=== PATIENT | female | born 2000 | race Two or more races ===

== ENCOUNTER 2020-03-16 12:02 | Outpatient (REF) | payer OTHER, SELFPAY ==
[2020-03-16 12:40] LABS: COVID-19 Test Negative (Negative)
== END 2020-03-16 12:03 | disposition home or self-care (01) ==
LOC: HO.LAB 12:02
PROVIDERS: Visit Provider Internal Medicine
DX: Z20.828 Contact with and (suspected) exposure to other viral communicable diseases (principal)
CPT/HCPCS: 87635

== ENCOUNTER 2022-08-06 16:13 | Outpatient (REF) | payer OTHER, SELFPAY | END 2022-08-06 16:14 | disposition home or self-care (01) | LOC: HO.LAB 16:13 | PROVIDERS: Visit Provider Nurse Practitioner Acute Care | DX: J02.9 Acute pharyngitis, unspecified (principal) | CPT/HCPCS: 36415; 87070 ==

== ENCOUNTER 2023-08-18 13:02 | Observation (INO) | payer OTHER, SELFPAY ==
[2023-08-18] VITALS (8 sets, daily range): BP systolic 116–132; BP diastolic 65–93; PULSE 89–110; RESP 16–19; TEMP 36.6–36.7; O2SAT 97–99; BMI 26.5
--- NOTE | ~2023-08-18 | XR_ITS ---
EXAMINATION: XR CHEST CLINICAL INFORMATION: Reason for Exam dyspnea COMPARISON: None TECHNIQUE: 2 views of the chest FINDINGS: Lines and tubes: None. Clear lungs. No pleural effusion. No pneumothorax. Normal cardiomediastinal silhouette. XR/XR chest 2V IMPRESSION: * Clear lungs.
--- NOTE | 2023-08-18 13:08 | ED_ITS ---
HPI - General Adult General Chief complaint: Upper Respiratory Symptoms Stated complaint: Diff Breathing Time Seen by Provider: 08/18/23 13:13 Source: patient, family (mother) and RN notes reviewed Mode of arrival: ambulatory Limitations: no limitations History of Present Illness HPI narrative: 22-year-old female with pmhx significant for allergy induced asthma as a child presents to ED today for evaluation of shortness of breath x1 week. She endorses audible wheezing that was initially on inspiration, now on both inspiration and expiration. She states that her PCP prescribed her albuterol inhaler and nebuliz er that she has been using. She states her symptoms are temporarily relieved with her nebulizer however after about 4 hours she begins to wheeze. She last used her nebulizer this morning. She endorses history of allergy induced asthma as a child however has not had any exacerbations since then and is not on a daily steroid. Denies known sick contacts. Denies fever, chills, headache, dizziness, cough, hemoptysis, chest pain, palpitations, lower extremity pain/swelling. Related Data Home Medications Medication Instructions Recorded Confirmed albuterol sulfate 2.5 mg/3 mL 2.5 mg inhalation Q4H PRN wheezing 08/18/23 08/18/23 (0.083 %) solution for nebulization albuterol sulfate 90 mcg/actuation 2 puff inhalation Q4-6H PRN 08/18/23 08/18/23 aerosol inhaler wheezing fexofenadine 180 mg tablet 180 mg PO Q24H PRN Allergy Symptoms 08/18/23 08/18/23 Allergies Allergy/AdvReac Type Severity Reaction Status Date / Time SEASONAL ALLERGIES Allergy Unknown SNEEZING, Uncoded 02/18/20 19:04 RUNNY NOSE, ITCHY EYES Review of Systems Review of Systems: Constitutional: No fever, chills, fatigue, night sweats, weight changes ENT/Mouth: No ear pain, hearing loss, nasal congestion, sinus pain, rhinorrhea, sore throat Eyes: No eye pain, swelling, redness, vision changes, discharge Cardio: No chest pain, palpitations, LIPSCOMB, orthopnea, peripheral edema Pulm: No cough, sputum, dyspnea, hemoptysis, +sob, +wheezing GI: No nausea, vomiting, hematemesis, abdominal pain, diarrhea, constipation, hematochezia, melena : No irregular bleeding, dysuria, frequency, urgency, hesitancy, hematuria, flank pain, urinary flow changes, urinary incontinence or retention MSK: No back pain, neck pain, joint pain, myalgias Skin: No lesions, rashes Neuro: No weakness, numbness, paresthesias, LOC, dizziness, headache Psych: No anxiety/panic, depression, SI/HI, AH/VH All other systems reviewed and are negative. [facility] Past Medical History Attestation statement: The following information was validated with the patient. Source: old records reviewed and nursing notes reviewed Social History Social History Alcohol intake: current Alcohol intake frequency: holidays/special occasions only Patient Tobacco Use Status: Never used Tobacco Smoked in Last 30 Days: No Use of substances other than those prescribed or required for medical reasons: Yes Substance Use Type: Marijuana Substance Use Frequency: Daily Last Used Substance: Days (ago) Any prior treatment program specific to substance use: No Advance Directives: No Advance Directives Information Provided: No Nutrition Risks: No Nutritional Risk Patient : No Physical Exam ED Vital Signs: Vital Signs - 24 hr 08/18/23 13:07 08/18/23 13:47 08/18/23 14:42 Temperature Pulse Rate 89 110 H 107 H Respiratory Rate 16 18 18 Blood Pressure 116/93 H Pulse Oximetry 98 Oxygen Delivery Method Room Air 08/18/23 14:59 Temperature 97.9 F Pulse Rate 90 Respiratory Rate 19 Blood Pressure 126/72 Pulse Oximetry 98 Oxygen Delivery Method Room Air BMI result Body Mass Index 26.5 Vital signs stable Const General: cooperative, healthy appearing, comfortable and no acute distress Orientation/consciousness: patient oriented x3 Limitations: no limitations [facility] Head: Yes normal to inspection, Yes No palpable skull fracture present, Yes normocephalic and Yes atraumatic Eyes General: appearance normal, both eyes and all related structures Conjunctivae: conjunctivae normal Sclerae: sclerae normal Pupils: Equal, round and reactive pupils present Neck Neck: Yes normal visual inspection, Yes no lymphadenopathy and Yes no JVD Chest Chest palpation & inspection: normal inspection of the chest and normal palpation of entire chest wall Resp Other: + diffuse inspiratory and expiratory wheezes Effort & Inspection: normal respiratory effort, able to speak in complete sentences, audible wheezes, no cough, no respiratory distress, no tripod positioning and no use of accessory muscles Cardio Rate: regular rate Rhythm: regular rhythm Skin General skin exam: no rashes or lesions noted Neuro General: patient oriented x3 Cranial nerves: Yes Equal, round and reactive pupils present Course Course Course Narrative: This is a rapid medical exam: Additional HPI, ROS, PE not included below will be deferred to primary provider. Patient is a 22-year-old female with history of asthma presenting to the emergency department with complaint of shortness of breath. Has been using nebulizer at home with little improvement in symptoms. Denies fevers. Plan: CXR, viral swabs Reevaluation(s) Reevaluation #1: 1613-- patient continues to have diffuse expiratory wheezes on exam despite treatment with Decadron, 2 doses of albuterol, and IV magnesium sulfate. Patient has tested negative for COVID, flu, RSV. Chest x-ray is unremarkable. No signs of pneumonia or effusion. Given continued symptoms despite treatment, will present to hospitalist for admission. 1623-- presented patient to Dr. Goldman who has accepted for admission. Dr. Goldman to place admission orders. Medications Administered Discontinued Medications Generic Name Dose Route Start Last Admin Trade Name Freq PRN Reason Stop Dose Admin Albuterol Sulfate 2.5 mg 08/18/23 14:36 08/18/23 14:42 Albuterol Sulfate (0.083%) 2.5 Mg/3 Ml Vial.Neb INHALE 08/18/23 14:37 2.5 mg ONCE ONE Administration Albuterol Sulfate 2.5 mg/ 0 mg 08/18/23 13:39 08/18/23 13:44 Albuterol/Ipratropium 3 ml INHALE 08/18/23 13:40 5 dose ONCE ONE Administration Dexamethasone Sodium Phosphate 10 mg 08/18/23 13:17 08/18/23 13:35 Dexamethasone Sod Phosphate 10 Mg/Ml Vial IVPUSH 08/18/23 13:18 10 mg ONCE ONE Administration Magnesium Sulfate 2 gm in 50 mls @ 25 mls/hr 08/18/23 14:57 08/18/23 16:46 Magnesium Sulfate/H2o IV 08/18/23 16:56 Infused ONCE ONE Infusion Medical Decision Making Medical Decision Making MDM Narrative: 22-year-old female with pmhx significant for allergy induced asthma as a child presents to ED today for evaluation of shortness of breath x1 week. Patient is slightly hypertensive. Not tachycardic. Not hypoxic. She is nontoxic appearing and in no acute distress. Lungs with diffuse inspiratory and expiratory wheezes. No increased effort of breathing. No JVD or peripheral edema. No calf tenderness. Clinical concern for viral syndrome, asthma, pneumonia. Low suspicion for acute respiratory distress, airway compromise, PE, pleural effusion. Plan for viral serology, CXR, bronch protocol and steroids Differential Diagnosis Differential Diagnoses: The differential diagnosis associated with the presentation includes As above Consult Healthcare Provider Management of the patient was discussed with: Hospitalist (Dr. Goldman) Lab Data MDM Lab Attestation statement: I reviewed the patient's lab results. as above. Labs: Lab Results 08/18/23 Range/Units 13:35 Influenza Type A (PCR) NEGATIVE (Negative) Influenza Type B (PCR) NEGATIVE (Negative) RSV RNA Qual (PCR) NEGATIVE (Negative) SARS-CoV-2 RNA (RT-PCR) NEGATIVE (Negative) Independent Interpretation I performed an independent interpretation of an: Plain X-Ray Interpretation: I have personally reviewed chest xray and agree with radiologist's interpretation. Radiology Impression Discussion of test interpretation with radiology: I have reviewed the radiologist's reading. Radiologist Impression: EXAMINATION: XR CHEST CLINICAL INFORMATION: Reason for Exam dyspnea COMPARISON: None TECHNIQUE: 2 views of the chest FINDINGS: Lines and tubes: None. Clear lungs. No pleural effusion. No pneumothorax. Normal cardiomediastinal silhouette. XR/XR chest 2V IMPRESSION: * Clear lungs. Independent Historian Clinical information obtained from an independent historian. History obtained from or confirmed by: Parent (mom) Prescription Management I considered prescription management with: Other (steroid) Chronic Conditions Patient?s care impacted by: Other (allergy induced asthma) Social Determinants Patient?s care significantly limited by Social Determinants of Health including: Other Social Determinant of Health Critical Care Time Critical Care Time Critical Care Time: Yes Total Critical Care Time: 60 Attestation: Critical care time in the amount of 60 minutes has been provided to the patient in terms of direct patient care, frequent reevaluation during breathing treatments, review and interpretation of medical data and results, and management of potentially life-threatening conditions. This is all outside of any medical procedures. Discharge Plan Discharge Clinical Impression: Asthma exacerbation Patient Disposition: Still a Patient Interventions: Admission Worksheet (ED) Last Done: 08/18/23 18:27
[2023-08-18] MEDS: dexAMETHasone sod phosphate 10 MG/ML VIAL IVPUSH (13:35)
[2023-08-18] MEDS: Albuterol Sulfate 2.5 MG, Albuterol/Iprat 2.5/0.5MG 3 ML 3 ML INHALE (13:44)
[2023-08-18 14:30] LABS: Influenza A PCR NEGATIVE (Negative); Influenza B PCR NEGATIVE (Negative); Resp Syncy Virus RNA Qual PCR NEGATIVE (Negative); SARS COV2 PCR INHOUSE NEGATIVE (Negative)
[2023-08-18] MEDS: Albuterol Sulfate (0.083%) 2.5 MG/3 ML VIAL.NEB INHALE (14:42)
[2023-08-18] MEDS: Magnesium Sulfate/H2O 2 GM/50 ML PIGGYBACK IV (15:11)
--- NOTE | 2023-08-18 17:04 | P.HPHOSP_ITS ---
History of Present Illness Date of Service: 08/18/23 Chief Complaint: dyspnea, wheezing 22yo F with mild intermittent asthma that was worse as a child and usually triggered by exercise but also by URIs. No prior intubation or hospitalizations, and last course of steroids was many years ago. Last use of albuterol before the current exacerbation was over a year ago. She presents with 1 week of progressive dyspnea and wheezing. Initially, she had some cold symptoms with nasal congestion. No exposure to cigarette smoke or chemical fumes. She has been coughing a small amount of thin sputum. She contacted her PCP for an albuterol refill, but was told she needed labs. She was not hypoxic upon presention to the ED. CXR was negative for pneumonia. PCR testing for influenza and Covid-19 was negative. She was given 10 mg IV dexamethasone, 2g of magnesium sulfate, 1 Duoneb, and 1 albuterol neb. Due to o ngoing wheezing and dyspnea, admission was requested. Review of Systems Review of Systems: Yes all other systems are reviewed and are negative PMFSH Social History Advance Directives: No Advance Directives Information Provided: No Narrative: occasional THC use Meds Allergies Allergy/AdvReac Type Severity Reaction Status Date / Time SEASONAL ALLERGIES Allergy Unknown SNEEZING, Uncoded 02/18/20 19:04 RUNNY NOSE, ITCHY EYES Physical Exam Vital Signs and Narrative: Vital Signs: Last Vital Signs Temp 97.9 F 08/18/23 14:59 Pulse 90 08/18/23 14:59 Resp 19 08/18/23 14:59 BP 126/72 08/18/23 14:59 Pulse Ox 98 08/18/23 14:59 O2 Del Method Room Air 08/18/23 14:59 BMI result Body Mass Index 26.5 Gen: in no acute distress HEENT: sclera anicteric, moist mucus membranes Neck: supple Lungs: diffuse inspiratory and expiratory wheezing Heart: regular rate and rhythm, no murmurs Abd: soft, non-tender, non-distended Ext: no edema Skin: warm/well-perfused Neuro: alert and oriented x3, no focal findings Psych: appropriate affect Results Labs Labs: Laboratory Results - last 24 hr 08/18/23 13:35 Influenza Type A (PCR) NEGATIVE Influenza Type B (PCR) NEGATIVE RSV RNA Qual (PCR) NEGATIVE SARS-CoV-2 RNA (RT-PCR) NEGATIVE Imaging Radiologist's Impressions: Impressions Chest X-Ray 08/18/23 13:21 IMPRESSION: * Clear lungs. Assessment and Plan (1) Mild intermittent asthma: Status: Acute Plan 22yo F with mild intermittent asthma that had been quiescent for over a year presenting with asthma exacerbation likely triggered by URI. mild intermittent asthma - admit to med-surg on observation, give IV methylprednisolone, standing/prn albuterol, d/c with albuterol neb/inhaler VTE ppx - SCDs, early ambulation dispo - anticipate home in next 1-2d Quality Stroke Does the patient have a stroke diagnosis?: No VTE Prior VTE?: No VTE Risk Level:: Medical - moderate - high VTE Device Contraindication: N/A - Device Ordered VTE Drug Contraindication: Treatment Not Indicated
--- NOTE | 2023-08-18 17:53 | PHA.MEDREC ---
Pharmacy Consult ? Medication Reconciliation Pharmacy has completed the medication reconciliation. spoke with patient to confirm medications. She reports using the nebulizer solution very often due to difficulty breathing. She reports not taking control in over 2 weeks.
[2023-08-18] MEDS: Albuterol/Iprat 2.5/0.5MG 3 ML AMPUL.NEB INHALE (20:32)
[2023-08-18] MEDS: methylPREDNISolone Sod Succ 40 MG/ML VIAL IVPUSH (21:31)
[2023-08-18] MEDS: 0.9 % Sodium Chloride Flush 3 ML SYRINGE IVFLUSH (21:31)
[2023-08-19] VITALS (10 sets, daily range): BP systolic 102–131; BP diastolic 58–76; PULSE 77–125; RESP 16–21; TEMP 36.1–36.9; O2SAT 96–98
[2023-08-19] MEDS: Albuterol/Iprat 2.5/0.5MG 3 ML AMPUL.NEB INHALE ×4 (08:01→20:28)
[2023-08-19] MEDS: methylPREDNISolone Sod Succ 40 MG/ML VIAL IVPUSH (08:02)
[2023-08-19] MEDS: 0.9 % Sodium Chloride Flush 3 ML SYRINGE IVFLUSH ×3 (08:02→20:28)
[2023-08-19] MEDS: methylPREDNISolone Sod Succ 125 MG/2 ML VIAL 60 MG IVPUSH ×3 (08:53→20:27)
--- NOTE | 2023-08-19 09:37 | MHC.CM.PN ---
pt lives with parents ,independent will not need servies when dcd
--- NOTE | 2023-08-19 13:57 | HO.PM.IMPN ---
Subjective Subjective Date of Service: 08/19/23 Interval History: Minimal improvement overnight. Still with dense expiratory wheezes Review of Systems Denies chest pain Admits to shortness of breath with exertion Denies nausea vomiting diarrhea Denies fever chills Physical Exam Vital Signs: Vital Signs: Last Vital Signs Temp 97.5 F 08/19/23 07:57 Pulse 90 08/19/23 11:16 Resp 16 08/19/23 11:16 BP 124/67 08/19/23 07:57 Pulse Ox 97 08/19/23 07:57 O2 Del Method Room Air 08/19/23 07:57 BMI result Body Mass Index 26.5 Const: Other: Awake alert able to speak in full sentences Resp: Other: Diminished at bases with dense expiratory wheezes throughout Cardio: Other: No S4; positive S1-S2; no S3 murmurs rubs or gallops GI: Other: Soft nontender nondistended normoactive bowel sounds Extrem: Other: No edema bilaterally Objective Data Active Medications Acetaminophen (Acetaminophen 325 Mg Tablet) 650 mg PO Q6H PRN PRN Reason: Pain, Mild (Pain Scale 1-3) Albuterol Sulfate (Albuterol Sulfate (0.083%) 2.5 Mg/3 Ml Vial.Neb) 2.5 mg INHALE Q2H PRN PRN Reason: Shortness of Breath/Wheezing Albuterol/Ipratropium (Albuterol/Iprat 2.5/0.5mg 3 Ml Ampul.Neb) 3 ml INHALE RQ4H WHILE AWAKE [facility] Last Admin: 08/19/23 11:16 Dose: 3 ml Documented By: EH Loratadine (Loratadine 10 Mg Tablet) 10 mg PO Q24H PRN PRN Reason: Allergy Symptoms Methylprednisolone Sodium Succinate (Methylprednisolone Sod Succ 125 Mg/2 Ml Vial) 60 mg IVPUSH Q6H [facility] Last Admin: 08/19/23 08:53 Dose: 60 mg Documented By: ROLANDO Ondansetron HCl (Ondansetron Hcl 4 Mg/2 Ml Vial) 4 mg IVPUSH Q8H PRN PRN Reason: Nausea and Vomiting Sodium Chloride (0.9 % Sodium Chloride Flush 3 Ml Syringe) 3 ml IVFLUSH QSHIFT [facility] Last Admin: 08/19/23 08:02 Dose: 3 ml Documented By: ROLANDO Labs Labs: Laboratory Results - last 24 hr 08/18/23 13:35 Influenza Type A (PCR) NEGATIVE Influenza Type B (PCR) NEGATIVE RSV RNA Qual (PCR) NEGATIVE SARS-CoV-2 RNA (RT-PCR) NEGATIVE Assessment and Plan (1) Asthma exacerbation: Status: Acute (2) Mild intermittent asthma: Status: Acute Plan 22yo F with mild intermittent asthma that had been quiescent for over a year presenting with asthma exacerbation likely triggered by URI. 1.Mild intermittent asthma with exacerbation -minimal improvement overnight; tolerant of therapies -increase Solu-Medrol to 60 mg IV q.6 hours -DuoNebs Q 4 while awake VTE ppx - SCDs, early ambulation Requires ongoing hospitalization for IV steroids; high risk for outpatient failure Quality Stroke Does the patient have a stroke diagnosis?: No VTE Prior VTE?: No VTE Risk Level:: Medical - low VTE Device Contraindication: N/A - Device Ordered VTE Drug Contraindication: Treatment Not Indicated
[2023-08-20] MEDS: methylPREDNISolone Sod Succ 125 MG/2 ML VIAL 60 MG IVPUSH ×3 (03:05→12:51)
[2023-08-20] MEDS: 0.9 % Sodium Chloride Flush 3 ML SYRINGE IVFLUSH (07:42)
[2023-08-20 07:43] VITALS: BP 118/70; PULSE 88; RESP 16; TEMP 36.4; O2SAT 96
[2023-08-20] MEDS: Albuterol/Iprat 2.5/0.5MG 3 ML AMPUL.NEB INHALE ×2 (07:51→11:36)
[2023-08-20 07:52] VITALS: PULSE 88; RESP 16; O2SAT 96
--- NOTE | 2023-08-20 10:12 | MHC.CM.PN ---
pt dcd home no servies
--- NOTE | 2023-08-20 11:33 | PC.NURSE ---
Pt to be discharged today after afternoon dose of solumedrol scheduled for 1430. Phone order per MD Dr Pereyra, afternoon dose to be given early at 12:45. Pt is alert and oriented x 4, has no complaints of pain, respirations are even and unlabored, resting in bed at this time.
[2023-08-20 11:36] VITALS: PULSE 90; RESP 16; O2SAT 94
--- NOTE | 2023-08-20 12:08 | PM.DS ---
DS: Providers Provider Date of Service: 08/20/23 Date of admission: 08/18/23 17:00 Date of discharge: 08/20/23 Primary care physician: Jessica Ibarra MD DS: Diagnosis Discharge Diagnosis (1) Asthma exacerbation: Status: Acute (2) Mild intermittent asthma: Status: Acute DS: Summary Hospital Course Hospital Course: 22yo F with mild intermittent asthma that was worse as a child and usually triggered by exercise but also by URIs. No prior intubation or hospitalizations, and last course of steroids was many years ago. Last use of albuterol before the current exacerbation was over a year ago. She presents with 1 week of progressive dyspnea and wheezing. Initially, she had some cold symptoms with nasal congestion. No exposure to cigarette smoke or chemical fumes. She has been coughing a small amount of thin sputum. She contacted her PCP for an albuterol refill, but was told she needed labs. She was not hypoxic upon presention to the ED. CXR was negative for pneumonia. PCR testing for influenza and Covid-19 was negative. She was given 10 mg IV dexamethasone, 2g of magnesium sulfate, 1 Duoneb, and 1 albuterol neb. Due to ongoing wheezing and dyspnea, admission was requested. Hospital Course Patient admitted to general medical floor and continued with DuoNebs q.4 hours p.r.n. and IV steroids. Over the next 24-48 hours patient improved to the point where she is now medically acceptable for discharge home. She will resume all pre-hospital medications and complete a prednisone taper; 60 mg daily x3, 40 mg daily x3, and 20 mg daily x3. She should follow up with PCP next available Time Attestation Discharge Coordination Time (in mins): 35 Quality: Safe Use of Opioids Does Pt have an Active Cancer Diagnosis on the Problem List?: No Quality: Stroke Does the patient have a stroke diagnosis?: No Physical Exam Vital Signs: Vital Signs: Last Vital Signs Temp 97.6 F 08/20/23 07:43 Pulse 90 08/20/23 11:36 Resp 16 08/20/23 11:36 BP 118/70 08/20/23 07:43 Pulse Ox 96 08/20/23 07:43 O2 Del Method Room Air 08/20/23 07:43 BMI result Body Mass Index 26.5 Const: Other: Awake alert able to speak in full sentences Resp: Other: Diminished at bases with dense expiratory wheezes throughout Cardio: Other: No S4; positive S1-S2; no S3 murmurs rubs or gallops GI: Other: Soft nontender nondistended normoactive bowel sounds Extrem: Other: No edema bilaterally Discharge Plan Discharge Anticipated Discharge Date/Time: 08/20/23 12:05 Patient Disposition: Home, Self-Care Discharge Diagnosis: Mild intermittent asthma with exacerbation Referrals: Jessica Ibarra MD [Primary Care Provider] - 1 Week Discharge Medications: New guaifenesin [Mucinex] 600 mg Tablet Extended Release 12hr 600 mg PO BID Qty: 60 0RF prednisone 20 mg tablet See Rx Instructions .Route .COMPLEX Qty: 18 0RF Rx Instructions: 20 mg orally; 3 tabs daily for 3 days, 2 tabs daily for 3 days, 1 tab daily for 3 days Continued albuterol sulfate 2.5 mg /3 mL (0.083 %) solution for nebulization 2.5 mg inhalation Q4H PRN (Reason: wheezing) fexofenadine 180 mg Tablet 180 mg PO Q24H PRN (Reason: Allergy Symptoms) albuterol sulfate 90 mcg/actuation HFA aerosol inhaler 2 puff inhalation Q4-6H PRN (Reason: wheezing) Discharge Orders: Discharge Order (Routine); Ordered 08/20/23 Ordered By: Ravin Pereyra Diet: Advance to usual diet Activity on Discharge: As tolerated Stand Alone Forms: Patient Portal Discharge page, Work/School Release Care Plan Goals: Continue all medicines as taken prior to the hospital. Health Concerns: Utilize nebulizer 4 times a day as needed until breathing normalizes Plan of Treatment: Prednisone taper has been added to your regimen. Take as ordered. Follow-up with PCP next available Assessment: See discharge summary
[2023-08-20] MEDS: guaiFENesin LA 600 MG TAB.ER.12H PO (12:09)
== END 2023-08-20 13:11 | disposition home or self-care (01) ==
LOC: HO.ED 16:08 → HO.EDOVER 17:25 → HO.S3 18:27
PROVIDERS: Registered Nurse Emergency; Admitting Provider Family Medicine; Emergency Provider Emergency Medicine; PCP Student in an Organized Health Care Education/Training Program; Visit Provider Hospitalist
DX: J45.21 Mild intermittent asthma with (acute) exacerbation (principal); R06.02 Shortness of breath; Z11.52 Encounter for screening for COVID-19; Z20.828 Contact with and (suspected) exposure to other viral communicable diseases
CPT/HCPCS: 0241U; 71046; 94640; 96365; 96366; 96375; 96376; 99221; 99285; J1100; J2920; J2930; J3475

== ENCOUNTER → 2023-08-18 13:22 | Outpatient (BNV) | payer OTHER, SELFPAY | PROVIDERS: Emergency Provider Emergency Medicine; PCP Student in an Organized Health Care Education/Training Program; Visit Provider Family Medicine | DX: J45.21 Mild intermittent asthma with (acute) exacerbation (principal) | CPT/HCPCS: 99222; 99232; 99239 ==

== ENCOUNTER 2023-08-27 23:09 | Emergency (ER) | payer OTHER, SELFPAY ==
[2023-08-27 23:54] VITALS: BP 140/75; PULSE 97; RESP 16; TEMP 37.6; O2SAT 97; BMI 26.3
--- NOTE | 2023-08-28 00:32 | ED.GENADULT ---
HPI - General Adult General Chief complaint: General Medical Stated complaint: severe bilateral leg pain Time Seen by Provider: 08/28/23 00:08 Source: patient Mode of arrival: ambulatory Limitations: no limitations History of Present Illness HPI narrative: Patient is a 22 old female who presents emergency department for evaluation of reported severe pain to the bilateral lower extremities. She reports onset of symptoms to be this morning. At approximately 07:00 she developed pain to the bilateral legs at 1st starting at hernias radiating down to the ankles, is felt primarily to the posterior aspect through the calves. Has had intermittent numbness and tingling to the right lower extremity. She tried the use of compression stockings by her mother's recommendation an elevation of her legs without much improvement. Tylenol did not alleviate her pain. Patient and her mother report that tonight she had to essentially crawl up the stairs due to the severity of her pain. Denies cold sensation to the feet. Reports that she recently traveled by plane approximately 4 hours followed by a 2 hour car travel, recently began taking OCPs. Denies chest pain, shortness of breath, prior history of DVT/PE/malignancy, known coagulation disorders. Denies any precipitating trauma or injury, extensive exercise, additional myalgias or arthralgias or history of similar pain. Has no associated back pain, abdominal/pelvic pain. Related Data Home Medications Medication Instructions Recorded Confirmed albuterol sulfate 2.5 mg/3 mL 2.5 mg inhalation Q4H PRN wheezing 08/18/23 08/18/23 (0.083 %) solution for nebulization albuterol sulfate 90 mcg/actuation 2 puff inhalation Q4-6H PRN 08/18/23 08/18/23 aerosol inhaler wheezing fexofenadine 180 mg tablet 180 mg PO Q24H PRN Allergy Symptoms 08/18/23 08/18/23 Previous Rx's Medication Instructions Recorded guaifenesin 600 mg tablet, 600 mg PO BID #60 tabs 08/20/23 extended release 12 hr (Mucinex) prednisone 20 mg tablet See Rx Instructions .Route 08/20/23 .COMPLEX #18 tabs Allergies Allergy/AdvReac Type Severity Reaction Status Date / Time SEASONAL ALLERGIES Allergy Unknown SNEEZING, Uncoded 08/18/23 21:34 RUNNY NOSE, ITCHY EYES Review of Systems Review of Systems: Yes all other systems are reviewed and are negative PMFSH Past Medical History Attestation statement: The following information was validated with the patient. Source: old records reviewed Social History Social History Alcohol intake: current Alcohol intake frequency: holidays/special occasions only Patient Tobacco Use Status: Never used Tobacco Substance Use Type: Marijuana Advance Directives: No Advance Directives Information Provided: No service: No Physical Exam ED Vital Signs: Vital Signs - 24 hr 08/27/23 23:54 Temperature 99.7 F Pulse Rate 97 Respiratory Rate 16 Blood Pressure 140/75 H Pulse Oximetry 97 Oxygen Delivery Method Room Air BMI result Body Mass Index 26.3 Appearance: Alert.?Oriented to person, place and time. No acute distress.?Normal affect. Neck: Normal inspection.? Neck supple.?? CVS: Heart sounds normal. Normal heart rate and rhythm.? Pulses normal.?? Respiratory: No respiratory distress.? Lung sounds clear to auscultation bilaterally?? Abdomen: Soft and non-tender. Normoactive bowel sounds. ? Skin: Skin warm and dry.? Normal skin color.? Extremities: No lower extremity edema.? Diffuse tenderness of the bilateral knees, mild tenderness upon palpation of the bilateral calves. 2+ DP/PT pulse bilaterally Neuro: Moves all extremities spontaneously. Sensation intact bilaterally. Ambulates with normal steady gait. Course Reevaluation(s) Reevaluation #1: CBC reveals a mild leukocytosis of 13.5 which may be reactive due to inflammatory nature versus recent steroid usage for asthma exacerbation, no anemia. No electrolyte abnormality, no NAY, transaminases within normal range. CPK is normal, not consistent with rhabdo. CRP is normal, unlikely a vasculitis. D-dimer negative, doubt by the 0 AVT based on history and physical examination negative dimer. Unlikely to have bilateral Romero's cyst. Received Toradol for pain management reports significant improvement. Suspect muscular etiology for symptoms. Recommended close outpatient follow-up with her primary care provider and worrisome signs and symptoms that would warrant re-evaluation in the emergency department. All questions answered. Stable for discharge. Time: 02:08 Medications Administered Discontinued Medications Generic Name Dose Route Start Last Admin Trade Name Freq PRN Reason Stop Dose Admin Ketorolac Tromethamine 30 mg 08/28/23 00:39 08/28/23 00:55 Ketorolac Tromethamine 30 Mg/Ml Vial IVPUSH 08/28/23 00:40 30 mg ONCE ONE Administration Medical Decision Making Medical Decision Making [facility] Narrative: Patient is a 22 year old female who presents emergency department for evaluation of bilateral lower extremity pain as per HPI without precipitating injury. She has been on oral contraceptives in the past but was off them for some time and then recently began taking them again, she has had recent travel by plane as well as car ride. Will obtain D-dimer to evaluate for possible DVT. In addition will obtain CBC, CMP, magnesium and CK for further evaluation. Toradol IV for pain. Differential Diagnosis Differential Diagnoses: The differential diagnosis associated with the presentation includes (Viral syndrome, rhabdo, myalgias, arthralgia, DVT, electrolyte derangement) Lab Data [facility] Lab Attestation statement: I reviewed the patient's lab results. (See course narrative) 08/28/23 00:36 08/28/23 00:36 Labs: Lab Results 08/28/23 08/28/23 Range/Units 00:06 00:36 WBC 13.5 H (4.8-10.8) X10*3/uL RBC 4.83 (4.20-5.50) X10*6/uL Hgb 14.9 (12.0-16.0) g/dl Hct 42.3 (37.0-47.0) % MCV 87.6 (80.0-98.0) fL MCH 30.8 (27.0-33.0) pg MCHC 35.2 H (31.0-35.0) g/dl RDW 11.6 (11.0-16.0) % Plt Count 324 (160-400) X10*3/uL MPV 8.9 L (9.4-12.3) fL Immature Gran % (Auto) 4.5 H (0.0-0.4) % Neut % (Auto) 78.8 H (45-73) % Lymph % (Auto) 12.3 L (20-40) % Burt % (Auto) 4.1 (2-11) % Eos % (Auto) 0.1 (0-4) % Baso % (Auto) 0.2 (0-2) % Lymph # (Auto) 1.7 (1.2-4.9) X10*3/uL Burt # (Auto) 0.6 (0.1-1.2) X10*3/uL Eos # (Auto) 0.0 (0.0-0.4) X10*3/uL Baso # (Auto) 0.0 (0.0-0.2) X10*3/uL Abs Immat Gran (auto) 0.61 H (0.00-0.03) X10*3/uL Absolute Neuts (auto) 10.7 H (2.0-8.3) x10*3/uL Absolute Nucleated RBC 0.000 (0.0-0.012) X10*3/uL Nucleated RBC % (auto) 0.0 (0.0-0.2) /100WBC PT 10.8 L (11.1-13.3) SEC INR 0.9 (0.9-1.1) D-Dimer High Sensitivty < 150 NG/ML Sodium 139 (135-145) mmol/L Potassium 4.3 (3.3-5.1) mmol/L Chloride 105 (96-108) mmol/L Carbon Dioxide 25 (22-29) mmol/L Anion Gap 13 (12-20) BUN 14 (9-16) mg/dL Creatinine 0.83 (0.5-1.4) mg/dL Estim Creat Clear Calc 92.7 Estimated GFR > 60 Random Glucose 113 (60-115) mg/dL Calcium 9.6 (8.4-10.2) mg/dL Magnesium 2.1 (1.6-2.6) mg/dL Total Bilirubin 0.3 (0.0-1.0) mg/dL AST 15 (5-31) U/L ALT 21 (0-31) U/L Alkaline Phosphatase 77 (39-117) U/L Total Creatine Kinase 41 (26-140) U/L C-Reactive Protein < 0.10 (< or = 0.50) mg/dL Total Protein 6.9 (6.5-8.0) g/dL Albumin 3.9 (3.5-5.0) g/dL Influenza Type A (PCR) NEGATIVE (Negative) Influenza Type B (PCR) NEGATIVE (Negative) RSV RNA Qual (PCR) NEGATIVE (Negative) SARS-CoV-2 RNA (RT-PCR) NEGATIVE (Negative) Independent Historian Clinical information obtained from an independent historian. History obtained from or confirmed by: Parent (Mother who confirms history) Prescription Management I considered prescription management with: Pain Medication (NSAID) Discharge Plan Discharge Clinical Impression: Myalgia, lower leg Patient Disposition: Home, Self-Care Instructions: Musculoskeletal Pain (ED) Additional Instructions: Be sure to rest, apply ice/heat to the area for 10-15 minutes 3-4 times daily. You can take ibuprofen 200 mg, 3 tablets (600mg) every 6-8 hours as needed for pain, in addition to Tylenol 500 mg, 2 tablets (1,000mg) every 4-6 hours as needed for pain, but not to exceed 3 doses daily (3,000mg).? You may continue use of compression stockings as previously doing. Contact your primary care provider to arrange for follow-up visit. Return back to emergency department any new or worsening symptoms or concerns such as severe worsening pain, numbness of the legs, inability to walk, poor balance, weakness, chest pain, shortness of breath, dizziness, lightheadedness, confusion. Prescriptions: No Action albuterol sulfate 2.5 mg /3 mL (0.083 %) solution for nebulization 2.5 mg inhalation Q4H PRN (Reason: wheezing) fexofenadine 180 mg Tablet 180 mg PO Q24H PRN (Reason: Allergy Symptoms) albuterol sulfate 90 mcg/actuation HFA aerosol inhaler 2 puff inhalation Q4-6H PRN (Reason: wheezing) guaifenesin [Mucinex] 600 mg Tablet Extended Release 12hr 600 mg PO BID Qty: 60 0RF prednisone 20 mg tablet See Rx Instructions .Route .COMPLEX Qty: 18 0RF Rx Instructions: 20 mg orally; 3 tabs daily for 3 days, 2 tabs daily for 3 days, 1 tab daily for 3 days Referrals: Jessica Ibarra MD [Primary Care Provider] -
[2023-08-28 00:41] LABS: MANUAL DIFF FLAG NO
[2023-08-28 00:42] LABS: Basophils Percent Auto 0.2 % (0-2); Eosinophils Percent Auto 0.1 % (0-4); Hematocrit 42.3 % (37.0-47.0); Hemoglobin 14.9 g/dl (12.0-16.0); Imm Gran Abs Auto 0.61 X10*3/uL (0.00-0.03); Imm Gran Pct Auto 4.5 % (0.0-0.4); Lymphocytes Absolute Auto 1.7 X10*3/uL (1.2-4.9); Lymphocytes Percent Auto 12.3 % (20-40); Mean Corpuscular HGB Conc 35.2 g/dl (31.0-35.0); Mean Corpuscular Hemoglobin 30.8 pg (27.0-33.0); Mean Corpuscular Volume 87.6 fL (80.0-98.0); Mean Platelet Volume 8.9 fL (9.4-12.3); Monocytes Absolute Auto 0.6 X10*3/uL (0.1-1.2); Monocytes Percent Auto 4.1 % (2-11); Neutrophils Absolute Auto 10.7 x10*3/uL (2.0-8.3); Neutrophils Percent Auto 78.8 % (45-73); Platelet Count 324 X10*3/uL (160-400); Red Blood Count 4.83 X10*6/uL (4.20-5.50); Red Cell Distribution Width 11.6 % (11.0-16.0); White Blood Count 13.5 X10*3/uL (4.8-10.8)
[2023-08-28 00:51] LABS: INTERNATIONAL NORM RATIO 0.9 (0.9-1.1); Prothrombin Time 10.8 SEC (11.1-13.3)
[2023-08-28] MEDS: Ketorolac Tromethamine 30 MG/ML VIAL IVPUSH (00:55)
[2023-08-28 00:56] LABS: D Dimer High Sensitivity < 150 NG/ML
[2023-08-28 00:57] LABS: Alanine Aminotransferase 21 U/L (0-31); Albumin Level 3.9 g/dL (3.5-5.0); Alkaline Phosphatase 77 U/L (39-117); Anion Gap 13 (12-20); Aspartate Amino Transferase 15 U/L (5-31); Bilirubin Total 0.3 mg/dL (0.0-1.0); Blood Urea Nitrogen 14 mg/dL (9-16); Calcium 9.6 mg/dL (8.4-10.2); Carbon Dioxide 25 mmol/L (22-29); Chloride 105 mmol/L (96-108); Creatinine Clr Calc Pharmacy 92.7; Estimated Glomerular Filt Rate > 60; Glucose Random 113 mg/dL (60-115); Magnesium 2.1 mg/dL (1.6-2.6); Potassium 4.3 mmol/L (3.3-5.1); Sodium 139 mmol/L (135-145); Total Protein 6.9 g/dL (6.5-8.0)
[2023-08-28 01:04] LABS: Influenza A PCR NEGATIVE (Negative); Influenza B PCR NEGATIVE (Negative); Resp Syncy Virus RNA Qual PCR NEGATIVE (Negative); SARS COV2 PCR INHOUSE NEGATIVE (Negative)
[2023-08-28 01:31] LABS: C Reactive Protein < 0.10 mg/dL (< or = 0.50)
[2023-08-28 02:29] VITALS: BP 114/68; PULSE 75; RESP 16; TEMP 37; O2SAT 97
== END 2023-08-28 02:36 | disposition home or self-care (01) ==
PROVIDERS: Nurse Practitioner Family; Emergency Provider Student in an Organized Health Care Education/Training Program; PCP Student in an Organized Health Care Education/Training Program
DX: M79.18 Myalgia, other site (principal); M79.605 Pain in left leg; M79.604 Pain in right leg; Z79.899 Other long term (current) drug therapy; Z11.52 Encounter for screening for COVID-19; Z20.828 Contact with and (suspected) exposure to other viral communicable diseases
CPT/HCPCS: 0241U; 36415; 80053; 82550; 83735; 85025; 85379; 85610; 86140; 96374; 99284; J1885